=== PATIENT | female | born 1990 | race Caucasian/White ===

== ENCOUNTER 2019-03-11 05:53 | Day surgery (SDC) | payer BC, OTHER ==
[~2019-03-11 05:53] MED LIST: Buffered Lidocaine 1% SYRIN* 1 ML/SYRINGE INTRADERM ONE; Sodium Citrate/Citric Acid* 15 ML UDC PO ONE
[2019-03-11] MEDS ORDERED: Lactated Ringers 1000 ML Bag* 1,000 ML IV SCH (06:00)
[2019-03-11] MEDS ORDERED: Buffered Lidocaine 1% SYRIN* 1 ML/SYRINGE INTRADERM ONE (06:32)
[2019-03-11] MEDS ORDERED: ceFAZolin 2 GM in NS PREMIX(*) 2 GM/100 ML BAG IVPB ONE (06:32)
[2019-03-11] MEDS ORDERED: Sodium Citrate/Citric Acid* 15 ML UDC ONE (06:48)
[2019-03-11] MEDS ORDERED: Propofol* 10 MG/ML 20 ML BTL ONE (07:23)
[2019-03-11] MEDS ORDERED: Midazolam* 1 MG/ML 2 ML VIAL (2 MG) ONE (07:23)
[2019-03-11] MEDS ORDERED: fentaNYL* 50 MCG/ML 2 ML VIAL (100 MCG VIAL) ONE ×3 (07:23→09:41)
[2019-03-11] MEDS ORDERED: Lidocaine 2% PF * 5 ML VIAL ONE (07:24)
[2019-03-11] MEDS ORDERED: Bupivacaine 0.5%* 50 ML VIAL ONE (07:27)
[2019-03-11] MEDS ORDERED: Acetaminophen IV 1GM/100ML * 1,000 MG/100 ML VIAL IVPB ONE (07:47)
[2019-03-11] MEDS ORDERED: Naloxone* 0.4 MG/ML 1 ML VIAL IV PRN (07:47)
[2019-03-11] MEDS ORDERED: Ondansetron INJ* 2 MG/ML VIAL IV PRN (07:47)
[2019-03-11] MEDS ORDERED: Acetaminophen IV 1GM/100ML * 100 ML ONE (09:04)
[2019-03-11] MEDS: fentaNYL* 50 MCG/ML 2 ML VIAL (100 MCG VIAL) IV PRN ×2 (09:06→09:16)
[2019-03-11] MEDS ORDERED: oxyCODONE TAB* 5 MG TAB ONE (09:41)
[2019-03-11] MEDS ORDERED: Ketorolac INJ* 30 MG/ML 1 ML VIAL ONE (09:43)
[2019-03-11] MEDS ORDERED: Dexamethasone IV* 4 MG/ML 1 ML (4 MG) ONE (09:43)
[2019-03-11 10:04] VITALS: BP 127/75
--- NOTE | 2019-03-11 19:28 | OP ---
DATE OF OPERATION: 03/11/19 - SDS DATE OF : 89 ATTENDING SURGEON: Rodrigo Avila MD. ASSISTED BY: Shant Anguiano PA-C. PRE-OP DIAGNOSES: Painful hardware, right bimalleolar ankle fracture, and superficial peroneal nerve entrapment. POST-OP DIAGNOSES: Painful hardware, right bimalleolar ankle fracture, and superficial peroneal nerve entrapment. OPERATIVE PROCEDURES: 1. Removal of hardware, medial and lateral right ankle. 2. Neurolysis release of the SPN nerve. DESCRIPTION OF PROCEDURE: The patient was taken to the operating room, where a lateral longitudinal incision was made over the distal fibula. The fibular plate was easily exposed, removed with the combination of star and regular hex- head screwdrivers. The plate was removed as well. The front and back lag screw , we could not identify and I did not want to take down the distal interosseous ligament to expose this, so it was left behind. The SPN nerve, though, was clearly visible just anterior to the wound and I traced it proximally. It seemed to be intact, and with a small dissecting scissor, I traced it up to the exit point from the crural fascia and released this fascia 3 to 4 cm proximally. This wound was then closed with 3-0 Monocryl and marlene for the skin. Medially, a 3 cm incision was made over the medial malleolus. Probing through the deltoid ligament, I was able to locate the heads of the two partially threaded cannulated screws. These were removed with the small hex screwdriver. A suture was placed into the deltoid to repair it. This wound was then closed with 3-0 Monocryl, nylon as well, and a compression dressing applied. [id number]/[facility] #: [id number] [facility]
== END 2019-03-11 10:28 | disposition home or self-care (01) ==
LOC: OR 05:53
PROVIDERS: ATTEND Orthopaedic Surgery
DX: T84.84XA Pain due to internal orthopedic prosthetic devices, implants and grafts, initial encounter (principal); Y83.1 Surgical operation with implant of artificial internal device as the cause of abnormal reaction of the patient, or of later complication, without mention of misadventure at the time of the procedure; G57.91 Unspecified mononeuropathy of right lower limb; S82.841D Displaced bimalleolar fracture of right lower leg, subsequent encounter for closed fracture with routine healing; X58.XXXD Exposure to other specified factors, subsequent encounter; Y92.9 Unspecified place or not applicable
CPT/HCPCS: 81025; 88300; A9270-GY; J0690; J1100; J1885; J2250; J2704; J3010; J3490

== ENCOUNTER 2023-11-02 13:03 | Inpatient (IN) ==
[2023-11-02] MEDS ORDERED: fentaNYL 100 mcg/2 ml 50 MCG/ML VIAL ONE (14:57)
[2023-11-02] MEDS ORDERED: Morphine PF AMP (0.5MG/ML) 5 MG/10 ML AMP ONE (14:57)
[2023-11-02] MEDS ORDERED: Ondansetron 4 mg VIAL 2 MG/ML 2 ml VIAL ONE (15:03)
[2023-11-02] MEDS ORDERED: Bupivacaine-MPF SPINAL 7.5 MG/ML - 2ML AMP ONE (15:09)
[2023-11-02] MEDS: Lactated Ringers 1000 ml BAG 1,000 ML IV ONE (15:20)
[2023-11-02 15:26] LABS: ABS Basophils 0.1 10^3/uL (0.0-0.1); ABS Lymphocytes 2.2 10^3/uL (1.0-4.8); ABS Monocytes 0.6 10^3/uL (0.0-0.9); ABS Neutrophils 10.6 10^3/uL (1.5-7.6); ABS Nucleated RBC 0.01 10^3/ul; Eosinophil % 0.4 %; Hematocrit 38.3 % (35-45); Hemoglobin 12.4 g/dL (11.5-14.3); Mean Corpuscular Hemoglobin 26.7 pg (27-33); Mean Corpuscular Hgb Conc 32.5 g/dL (31-36); Mean Corpuscular Volume 82.2 fL (80-97); Nucleated Red Blood Cells % 0.1 %/100WBC (0.0-0.8); Platelet Count 255 10^3/uL (150-450); Red Blood Count 4.65 10^6/uL (3.63-4.92); Red Cell Distribution Width 14.8 % (12-17); White Blood Count 13.5 10^3/uL (3.8-11.8)
[2023-11-02] MEDS: Sodium Citrate/Citric Acid LIQ 15 ML UDC PO ONE (16:45)
[2023-11-02] MEDS ORDERED: Oxytocin 10 UNITS/ML 1 ML VIAL ONE (16:51)
[2023-11-02] MEDS ORDERED: Acetaminophen IV 1 GM/100ML 1,000 MG/100 ML BAG IV ONE (17:06)
[2023-11-02] MEDS ORDERED: Naloxone 0.4 mg VIAL 0.4 mg/ml 1 ml VIAL IV PUSH PRN (17:18)
[2023-11-02] MEDS ORDERED: Acetaminophen IV 1 GM/100ML 1,000 MG/100 ML BAG IV PRN (17:18)
[2023-11-02] MEDS ORDERED: Witch Hazel PAD JAR TOPICAL PRN (17:43)
[2023-11-02] MEDS ORDERED: Glycerin ADULT 2.4 gm SUPP PR PRN (17:43)
[2023-11-02] MEDS ORDERED: Dibucaine 1% OINT 28.35 GM TUBE PR PRN (17:43)
[2023-11-02] MEDS ORDERED: Lactated Ringers 1000 ml BAG 1,000 ML IV SCH (18:00)
[2023-11-02 18:17] LABS: Urine Appearance Clear; Urine Bilirubin Negative (Negative); Urine Blood Negative (Negative); Urine Color Light-Yellow; Urine Glucose Negative (Negative); Urine Ketones 3+ (Negative); Urine Nitrite Negative (Negative); Urine Protein Negative (Negative); Urine Specific Gravity 1.018 (1.002-1.030); Urine Urobilinogen Negative (Negative)
[2023-11-02] MEDS: Buffered Lidocaine 1% SYRIN 1 ml INTRADERM ONE (18:45)
[2023-11-02] MEDS: ceFAZolin 2 GM PREMIX 2 GM/50 ML BAG IV ONE (18:45)
[2023-11-02] MEDS: Lactated Ringers 1000 ml BAG 1,000 ML IV SCH (18:47)
[2023-11-02 18:48] LABS: Urine Benzodiazepine Screen None Detected (None Detect); Urine Cannabinoids Screen None Detected (None Detect); Urine Opiates Screen None Detected (None Detect)
[2023-11-02] MEDS: Oxytocin in LR 20,000 MILLI.UNIT/1,000 ML BAG IV SCH (21:18)
[2023-11-02] MEDS: Metoclopramide 5 MG/ML VIAL (10 mg) IV PRN (22:19)
[2023-11-03] MEDS: Ondansetron 4 mg VIAL 2 MG/ML 2 ml VIAL IV PRN (05:37)
[2023-11-03 07:05] LABS: ABS Basophils 0.1 10^3/uL (0.0-0.1); ABS Lymphocytes 1.8 10^3/uL (1.0-4.8); ABS Monocytes 1.1 10^3/uL (0.0-0.9); ABS Nucleated RBC 0.01 10^3/ul; Hematocrit 34.2 % (35-45); Hemoglobin 11.1 g/dL (11.5-14.3); Lymphocyte % 10.2 %; Mean Corpuscular Hemoglobin 26.8 pg (27-33); Mean Corpuscular Hgb Conc 32.6 g/dL (31-36); Mean Corpuscular Volume 82.3 fL (80-97); Platelet Count 224 10^3/uL (150-450); Red Blood Count 4.15 10^6/uL (3.63-4.92); Red Cell Distribution Width 15.3 % (12-17)
[2023-11-03 16:02] VITALS: BP 116/64
== END 2023-11-03 18:46 | disposition home or self-care (01) | DRG 540 ==
LOC: MCHOBOUT 13:03 → MCHOB 13:13
PROVIDERS: ADMIT Obstetrics & Gynecology; ATTEND Obstetrics & Gynecology